=== PATIENT | male | born 1955 | race Hispanic/Latino ===

== ENCOUNTER 2019-03-18 09:03 | Day surgery (SDC) | payer OTHER ==
[~2019-03-18 09:03] MED LIST: NACL 0.9% 1000 ML 1,000 ML IV SCH
[2019-03-18] MEDS ORDERED: PROVENTIL IH NR (10:45)
--- NOTE | 2019-03-18 10:55 | Anesthesia Day of Surgery ---
Anesthesia Day of Surgery - Day of Surgery Patient Examined: Yes Patient H&P Reviewed: Yes Patient is NPO: Yes
--- NOTE | 2019-03-18 10:59 | Anesthesia Consultation ---
Anesthesia Consult and Med Hx Date of service: 03/18/19 - Airway Anesthetic Teeth Evaluation: Good, Dentures ROM Head & Neck: Adequate Mental/Hyoid Distance: Adequate Mallampati Class: Class II Intubation Access Assessment: Good - Pulmonary Exam CTA: No (Wheezing) - Pre-Operative Health Status ASA Pre-Surgery Classification: ASA3 Proposed Anesthetic Plan: MAC - Pulmonary Hx Asthma: Yes (Worsened by allergic exposure) - Cardiovascular System Hx Hypertension: Yes Hx Coronary Artery Disease: Yes (CABG 07/2007. States he go to the gym and walks 2 miles 14/month) - Central Nervous System Hx Back Pain: Yes (Surgeries) - Gastrointestinal Hx Gastroesophageal Reflux Disease: Yes - Endocrine Hx Liver Disease: Yes (Hx Hep C) Hx Non-Insulin Dependent Diabetes: Yes
[2019-03-18] MEDS ORDERED: XYLOCAINE MPF 2% ONE (11:00)
[2019-03-18] MEDS ORDERED: DIPRIVAN 10 MG/ML IV ONE ×2 (12:20)
--- NOTE | 2019-03-18 13:18 | Procedure Note ---
Date of procedure: 03/18/19 Pre-op diagnosis: GERD/ Colon Screening/F/H/O Cancer (Ovarian cancer- Grandmother) Post-op diagnosis: other (Moderate,Erosive Esophagitis/Gastric Nodule/Gastritis/Mild,Portal Gastropathy/R/O Celiac Disease/Two Colon Polyps (removed by snare polypectomy from the Ascending colon and Transverse Colon)/Incidental,Transverse Colon Lipoma) Procedure: EGD with Biopsy and Colonoscopy with Snare Polypectomy (Hot) Anesthesia: MAC Surgeon: MELODY MORENO Estimated blood loss: minimal Pathology: list Specimen disposition: to lab Condition: stable Disposition: same day (Treat with PPI. Avoid aspirin,NSAID and anticoagulants for 4 days; otherwise resume home medication. Follow up in 1 to 2 weeks ([phone]).)
[2019-03-18 14:48] VITALS: BP 147/75
--- NOTE | 2019-03-18 15:42 | Operative Report ---
PROCEDURE: Esophagogastroduodenoscopy with biopsy. INDICATIONS: This is a 63-year-old white male who has been having GERD symptoms. EGD was done to assess for the problem. DESCRIPTION OF PROCEDURE: Procedure was done after getting informed consent with MAC anesthesia. Instrument was passed through the hypopharynx into the esophagus, which showed moderate distal erosive esophagitis. Biopsy was done from the distal esophagus. The stomach showed a solitary gastric nodule in the gastric antrum as well as gastritis. Biopsy was done from the gastric nodule, gastric antrum, gastric body and angular incisura to rule out for H. pylori and atrophic gastritis. There was some evidence of mild portal gastropathy. The pylorus was patent. The duodenum in the first and the second portion was normal. The patient does have an underlying history of diabetes. Biopsy was done to rule out for possible associated celiac disease. ASSESSMENT: Gastroesophageal reflux disease symptoms, esophagitis, solitary gastric nodule, gastritis, portal gastropathy, which was mild, rule out celiac disease. PLAN: To treat the patient with PPI, have the patient to avoid aspirin and aspirin-related products for the next few days. The patient will have a colonoscopy done as part of colon polyp screening and because of the patient's underlying history of cancer and the patient will be asked to follow up in the office in 1-2 weeks' time. The patient will be treated with PPI and asked to avoid aspirin and aspirin-related products for the next 3-4 days. Procedure was done in the GI lab with assistance of the GI lab team, which included NAIMA Medellin as well as Andrea henry and with the assistance of anesthesia. JOB# [id number] REBECA/ABAD
--- NOTE | 2019-03-18 16:49 | Operative Report ---
PROCEDURE: Colonoscopy. INDICATIONS: A 63-year-old white male with underlying family history of cancer. The patient's grandmother had ovarian cancer. The patient has an underlying history of hypertension and diabetes mellitus. Colonoscopy was done. It is said to have been done several years ago and did not find any polyps at that time. A repeat colonoscopy was done as part of colon polyp screening. DESCRIPTION OF PROCEDURE: Procedure was done after getting informed consent with MAC anesthesia. Initial rectal exam was unremarkable. Instrument was passed through the rectum onto the cecum, which was identified with ileocecal valve and appendiceal orifice. The scope was retroverted in the cecum and a polyp was noted, which was removed by snare excision. There were 2 polyps noted, one in the distal ascending colon that was removed by snare excision with application of heat and retrieved and another one in the transverse colon that was removed by snare excision with application of heat and retrieved. There was no to minimal bleeding associated with the polypectomy. There was a lipoma ulcer noted in the transverse colon. No biopsies were done. Photodocumentation was obtained. There was an incidental lipoma. The remaining part of the transverse colon, descending colon, and sigmoid showed normal mucosa and the rectum appeared normal on the retroverted view. ASSESSMENT: Colon polyp screening, family history of cancer. The patient's grandmother had ovarian cancer. Two colon polyps noted, which were removed by snare polypectomy and application of heat, one in the distal ascending colon, the other being in the proximal transverse colon and incidental lipoma that was noted in the proximal transverse colon that was not biopsied. PLAN: To have the patient avoid aspirin and aspirin-related products for the next 4 days and treat the patient with PPI because of the upper GI findings of esophagitis and gastritis. The patient will be asked to resume other home medication besides any aspirin or aspirin-related products and anticoagulants and followup in the office in 1-2 weeks' time. JOB# [id number] REBECA/ABAD
== END 2019-03-18 09:04 | disposition home or self-care (01) ==
LOC: GIO 09:03
DX: Z12.11 Encounter for screening for malignant neoplasm of colon (principal); E11.9 Type 2 diabetes mellitus without complications; I10 Essential (primary) hypertension; K21.0 Gastro-esophageal reflux disease with esophagitis; K31.89 Other diseases of stomach and duodenum; K29.50 Unspecified chronic gastritis without bleeding; K63.5 Polyp of colon; I25.10 Atherosclerotic heart disease of native coronary artery without angina pectoris; E78.00 Pure hypercholesterolemia, unspecified; J45.909 Unspecified asthma, uncomplicated; Z79.01 Long term (current) use of anticoagulants; Z95.1 Presence of aortocoronary bypass graft; Z79.4 Long term (current) use of insulin; Z79.84 Long term (current) use of oral hypoglycemic drugs; Z79.82 Long term (current) use of aspirin; Z88.5 Allergy status to narcotic agent; Z88.8 Allergy status to other drugs, medicaments and biological substances; Z98.890 Other specified postprocedural states; Z90.49 Acquired absence of other specified parts of digestive tract; Z80.0 Family history of malignant neoplasm of digestive organs; Z80.41 Family history of malignant neoplasm of ovary
CPT/HCPCS: 82962; 88305; 88342; J2704; J7030